=== PATIENT | female | born 1995 | race Two or more races ===

== ENCOUNTER 2023-07-28 18:11 | Emergency (ER) | payer OTHER ==
[~2023-07-28] VITALS: Ht 149.9 cm; Wt 59.1 kg
[2023-07-28 18:23] VITALS: BP 122/71; PULSE 92; RESP 18; TEMP 98.4
[2023-07-28] MEDS ORDERED: ACETAMINOPHEN 500 MG TABLET PO ONE (20:30)
== END 2023-07-28 21:38 | disposition home or self-care (01) ==
LOC: EMS 18:13
DX: S93.401A Sprain of unspecified ligament of right ankle, initial encounter (principal); X50.1XXA Overexertion from prolonged static or awkward postures, initial encounter; Y93.89 Activity, other specified; Y92.830 Public park as the place of occurrence of the external cause; Y99.8 Other external cause status
CPT/HCPCS: 29515; 99283